=== PATIENT | male | born 1975 | race Caucasian/White ===

== ENCOUNTER 2023-11-09 00:40 | Emergency (ER) | payer SELFPAY ==
[~2023-11-09] VITALS: Ht 175.3 cm; Wt 113.4 kg
[2023-11-09 00:40] VITALS: BP 130/70; PULSE 86; RESP 16; TEMP 98.6; O2SAT 98
[2023-11-09 00:42] VITALS: BP 130/70; PULSE 86; RESP 16; TEMP 98.6; O2SAT 98
== END 2023-11-09 01:24 | disposition home or self-care (01) ==
LOC: MED 00:40
DX: Z02.89 Encounter for other administrative examinations (principal); I10 Essential (primary) hypertension
CPT/HCPCS: 99283